=== PATIENT | female | born 1985 | race Caucasian/White ===

== ENCOUNTER 2020-03-11 03:57 | Inpatient (IN) | payer OTHER ==
[2020-03-11] MEDS ORDERED: AMPICILLIN/NS 2 GM/100 ML 2 GM/100 ML BAG IV ONE (05:00)
[2020-03-11] MEDS ORDERED: MINERAL OIL 30 ML ORAL LIQD PO PRN (05:00)
[2020-03-11] MEDS ORDERED: ePHEDrine SULFATE 50 MG/1 ML INJ IV PRN ×2 (05:00→06:01)
[2020-03-11] MEDS ORDERED: fentaNYL 100 MCG/2 ML INJ IV PRN (05:00)
[2020-03-11] MEDS ORDERED: LIDOCAINE (2%) 20 MG/1 ML VIAL 20 ML MDV INFILTRATI ONE (05:00)
[2020-03-11] MEDS ORDERED: LACTATED RINGERS 1,000 ML IV SCH (05:00)
[2020-03-11] MEDS ORDERED: OXYTOCIN DRIP 30 UNITS/500 ML BAG IV SCH ×2 (05:00)
--- NOTE | 2020-03-11 05:08 | History and Physical Report ---
History of Present Illness Date of examination: 03/11/20 Date of admission: 03/11/2019 Chief complaint: Contractions History of present illness: 34 year old complains of regular uterine contractions. Patient denies leaking of fluid or vaginal bleeding. Patient received care at [facility] and she brings records with her. LMP 06/12/2019. EDC 03/18/2020. significant for the following: obesity, echogenic foci LV (had [facility] consult). labs are as follows: B+, antibody screen negative, rubella immune, hepatitis B surface antigen negative, HIV negative, RPR nonreactive, pap smear negative, chlamydia negative, gonorrhea negative, AFP negative, 1 hour sugar test 83, GBS negative. 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 denies: smoking, alcohol abuse, prescription drug abuse, IV drug use - Obstetrical History Expected Date of Delivery: 03/18/20 Actual Gestation: 39 Week(s) 0 Day(s) : 3 Para: 2 Hx # Term Pregnancies: 2 Number of Pregnancies: 0 Spontaneous Abortions: 0 Induced : 0 Number of Living Children: 2 Medications and Allergies Allergies Allergy/AdvReac Type Severity Reaction Status Date / Time No Known Allergies Allergy Unverified 03/11/20 04:39 Active Meds: Active Medications Ephedrine Sulfate (Ephedrine Sulfate 50 Mg/1 Ml Inj) 10 mg IV Q2M PRN PRN Reason: Hypotension Fentanyl (Fentanyl 100 Mcg/2 Ml Inj) 100 mcg IV Q2H PRN PRN Reason: Pain,Severe (7-10) LABOR PAIN Oxytocin/Sodium Chloride (Pitocin/Ns 30 Unit/500ml) 30 units in 500 mls @ 2 mls/hr IV TITR CARMEN; Protocol Lactated Ringer's (Lactated Ringers) 1,000 mls @ 125 mls/hr IV DIRECT CARMEN Oxytocin/Sodium Chloride (Pitocin/Ns 30 Unit/500ml) 30 units in 500 mls @ 40 mls/hr IV TITR CARMEN; Protocol Ampicillin Sodium (Ampicillin/Ns 2 Gm/100 Ml) 2 gm in 100 mls @ 100 mls/hr IV ONCE ONE; Protocol Stop: 03/11/20 05:59 Ampicillin Sodium (Ampicillin/Ns 1 Gm/50 Ml) 1 gm in 50 mls @ 100 mls/hr IV Q4H CARMEN; Protocol Lidocaine (Lidocaine (2%) 20 Mg/1 Ml Vial 20 Ml Mdv) 20 ml INFILTRATI ONCE ONE Stop: 03/11/20 05:01 Mineral Oil (Mineral Oil 30 Ml Oral Liqd) 30 ml PO QHS PRN PRN Reason: Constipation Review of Systems All systems: negative (contractions) - Vital Signs Vital signs: Vital Signs Pulse Pulse Ox 110 H 98 03/11/20 04:26 03/11/20 04:26 Temp Pulse Resp BP Pulse Ox 99 F 96 H 18 115/63 99 03/11/20 04:28 03/11/20 05:06 03/11/20 04:28 03/11/20 04:39 03/11/20 05:06 - Physical Exam Abdomen: Positive: normal appearance, soft. Negative: distention, tenderness, guarding, rigidity Genitourinary (Female): Positive: normal external genitalia, normal perenium. Negative: perineal/vulvar lesions Vagina: Positive: normal moisture Uterus: Positive: enlarged. Negative: tender Anus/Rectum: Positive: normal perianal skin Extremities: Positive: normal - Obstetrical FHR: category 2 Uterine Contraction Monitor Mode: External Cervical Dilatation: 4.5 Cervical Effacement Percentage: 80 station: -2 Uterine Contraction Pattern: Regular Results All other labs normal. Assessment and Plan A: at 39 weeks gestation. Active labor. GBS negative. P: Admit. EFM. Anticipate .
[2020-03-11] MEDS ORDERED: NALOXONE 2 MG/2 ML INJ IV PRN (06:01)
--- NOTE | 2020-03-11 06:01 | Anesthesia Consultation ---
Anesthesia Consult and Med Hx Date of service: 03/11/20 - Airway Anesthetic Teeth Evaluation: Good ROM Head & Neck: Adequate Mental/Hyoid Distance: Adequate Mallampati Class: Class II Intubation Access Assessment: Probably Good - Pulmonary Exam CTA: Yes - Cardiac Exam Cardiac Exam: RRR - Pre-Operative Health Status ASA Pre-Surgery Classification: ASA2 Proposed Anesthetic Plan: Epidural - Pulmonary Hx Smoking: No Hx Asthma: No Hx Respiratory Symptoms: No SOB: No COPD: No Home Oxygen Therapy: No Hx Pneumonia: No Hx Sleep Apnea: No - Cardiovascular System Hx Hypertension: No Hx Coronary Artery Disease: No Hx Heart Attack/AMI: No Hx Angina: No Hx Percutaneous Transluminal Coronary Angioplasty (PTCA): No Hx Cardia Arrhythmia: No Hx Pacemaker: No Hx Internal Defibrillator: No Hx Valvular Heart Disease: No Hx Heart Murmur: No Hx Peripheral Vascular Disease: No - Central Nervous System Hx Neuromuscular Disorder: No Hx Seizures: No CVA: No Hx Back Pain: No Hx Psychiatric Problems: No - Gastrointestinal Hx Ulcer: No Hx Gastroesophageal Reflux Disease: Yes - Endocrine Hx Renal Disease: No Hx End Stage Renal Disease: No Hx Cirrhosis: No Hx Liver Disease: No Hx Insulin Dependent Diabetes: No Hx Non-Insulin Dependent Diabetes: No Hx Thyroid Disease: No Hx Hypothyroidism: No Hx Hyperthyroidism: No - Hematic Hx Anemia: No Hx Sickle Cell Disease: No - Other Systems Hx Alcohol Use: No Hx Substance Use: No Hx Cancer: No Hx Obesity: Yes
[2020-03-11 06:35] LABS: Hematocrit 38.4 % (30.3-42.9); Hemoglobin 13.1 gm/dl (10.1-14.3); Mean Corpuscular HGB Conc 34 % (30-34); Mean Corpuscular Volume 91 fl (79-97); Platelet Count 216 K/mm3 (140-440); Red Blood Count 4.21 M/mm3 (3.65-5.03); Red Cell Distribution Width 13.9 % (13.2-15.2)
[2020-03-11] MEDS ORDERED: fentaNYL-BUPIV 2 MCG/ML-0.125% 200 MCG/100 ML BAG EPIDURAL SCH (07:00)
[2020-03-11] MEDS ORDERED: LANOLIN/ZINC/DIMETHICONE (LANSINOH) 7 GM TP PRN (08:00)
[2020-03-11] MEDS ORDERED: WITCH HAZEL/ GLYCERIN PAD TP PRN (08:00)
[2020-03-11] MEDS ORDERED: HYDROcodone/ACETAMINOPHEN 5-325 MG TAB PO PRN (08:00)
--- NOTE | 2020-03-11 08:03 | Procedure Note ---
OB Delivery Note - Delivery Date of Delivery: 03/11/20 Surgeon: OPAL MONTAÑO Estimated blood loss: other (250 cc) - Vaginal Delivery presentation: vertex Delivery position: OA Intrapartum events: meconium Delivery induction: none Delivery monitor: external FHT, external uterine Route of delivery: Delivery placenta: spontaneous Delivery cord: 3 umbilical vessels Episiotomy: none Delivery laceration: none Delivery repair: vicryl Anesthesia: none Delivery comments: Spontaneous vaginal delivery at 06:43 of liveborn female weighing 3.046 kg over intact perineum with apgars of 8/9. Meconium stained amniotic fluid; respiratory present for delivery. was atraumatic; no nuchal cord. Baby suctioned with bulb syringe, dried and stimulated. Spontaneous cry and respirations. Baby placed skin to skin with mom immediately after . 3 vessel cord double clamped and cut and baby taken to radiant warmer for further suctioning. Spontaneous delivery of intact placenta and membranes at 06:46. EBL 250 cc. Pitocin to IV fluids after delivery of placenta. Fundus firm and midline. No lacerations noted. Vaginal sweep negative. Sponge count correct. Mother and baby stable.
[2020-03-11] MEDS ORDERED: MAGNESIUM HYDROXIDE (MOM) ORAL LIQD UDC PO PRN (08:30)
[2020-03-11] MEDS: IBUPROFEN 600 MG TAB PO SCH ×2 (08:50→17:47)
[2020-03-11] MEDS ORDERED: AMPICILLIN/NS 1 GM/50 ML 1 GM/50 ML BAG IV SCH (09:06)
[2020-03-12] MEDS: IBUPROFEN 600 MG TAB PO SCH ×2 (00:09→05:38)
--- NOTE | 2020-03-12 11:34 | Progress Note ---
Assessment and Plan A: day 1 S/P . P: Discharge patient home today. Discussed with patient discharge instructions and warning signs. Advised patient to continue taking her vitamins at home. Advised patient to avoid intercourse, lifting, and housework. Advised patient to follow up at [facility] in 6 weeks. Patient voiced understanding of all instructions. Subjective - Subjective Date of service: 03/12/20 Principal diagnosis: day 1 S/P Patient reports: appetite normal, voiding normally, pain well controlled, flatus, ambulating normally, no dizzy ambulation, no nauseated Outlook: doing well Objective - Vital Signs Latest vital signs: Vital Signs Temp Pulse Resp BP BP Pulse Ox 03/12/20 07:50 98.2 F 78 18 97/49 96 03/12/20 01:20 98.0 F 74 20 102/63 94 03/11/20 16:49 98.0 F 71 18 126/63 96 Intake and Output 03/11/20 03/12/20 03/12/20 23:59 07:59 15:59 Intake Total 240 600 240 Balance 240 600 240 Intake: Oral 240 600 240 Other: Total, Intake Amount 240 240 240 # Voids Void 1 1 - Exam Cardiovascular: Present: Regular rate Lungs: Present: Clear to auscultation Abdomen: Present: normal appearance, soft. Absent: distention, tenderness, guarding, rigidity Uterus: Present: normal, firm, fundal height below umbilicus. Absent: bogginess, tenderness Extremities: Present: normal. Absent: tenderness, edema
--- NOTE | 2020-03-12 11:57 | Discharge Summary ---
Providers - Providers Date of Admission: 03/11/20 05:00 Date of discharge: 03/12/20 Attending physician: MICHELLE VALADEZ Primary care physician: MICHELLE VALADEZ Hospitalization Reason for admission: active labor Delivery: Episiotomy: none Laceration: none Other procedures: none complications: none Discharge diagnosis: IUP at term delivered baby: female Pertinent studies: Labs Hospital course: Normal hospital course. Condition at discharge: Good Disposition: DC-01 TO HOME OR SELFCARE - Discharge Diagnoses (1) Term delivered Status: Acute Plan - Provider Discharge Summary Activity: routine, no sex for 6 weeks, no heavy lifting 4 weeks, no strenuous exercise Diet: routine Instructions: routine Additional instructions: Continue taking your vitamins at home. Call your doctor immediately for: * Fever > 100.5 * Heavy vaginal bleeding ( >1 pad per hour) * Severe persistent headache * Shortness of breath * Reddened, hot, painful area to leg or breast - Follow up plan Follow up: MICHELLE VALADEZ MD [Primary Care Provider] - 6 Weeks
[2020-03-12 15:29] VITALS: BP 110/64
== END 2020-03-12 15:40 | disposition home or self-care (01) | DRG 807 ==
LOC: TRG 03:57 → APU 04:00 → TRG 05:00 → APU 05:00 → LD 06:33 → OB 09:32
PROVIDERS: ADMIT Obstetrics & Gynecology; ATTEND Obstetrics & Gynecology
PROC: 10E0XZZ Delivery of Products of Conception, External Approach (ICD-10-PCS; principal; 2020-03-11)
DX: O77.0 Labor and delivery complicated by meconium in amniotic fluid (principal); Z37.0 Single live birth; O99.62 Diseases of the digestive system complicating childbirth; K21.9 Gastro-esophageal reflux disease without esophagitis; Z20.822 Contact with and (suspected) exposure to COVID-19; Z3A.39 39 weeks gestation of pregnancy
CPT/HCPCS: 36415; 85014; 85018; 85027; 86592; 86850; 86900; 86901; G0378; A6250; J7120; U0003